=== PATIENT | male | born 1995 | race Caucasian/White ===

== ENCOUNTER 2019-01-16 12:50 | Emergency (ER) | payer OTHER ==
[2019-01-16] MEDS ORDERED: PEG 3350/NA SULF,BICARB,CL/KCL (GAVILYTE-G) 4000 ML BTL PO ONE (13:29)
[2019-01-16] MEDS ORDERED: GLYCERIN ADULT 1 EACH SUPP PR ONE (13:29)
--- NOTE | 2019-01-16 13:29 | EDPHY ---
H & P Stated Complaint: 2 weeks constipation Source: Patient Exam Limitations: No limitations - Personal History Current Tetanus Diphtheria and Acellular Pertussis (TDAP): Yes - Medical/Surgical History Hx Asthma: No Hx Chronic Respiratory Disease: No Hx Diabetes: No Hx Cardiac Disease: No Hx Renal Disease: No Hx Cirrhosis: No Hx Alcoholism: No Hx HIV/AIDS: No Hx Splenectomy or Spleen Trauma: No Other PMH: constipation - Social History Smoking Status: Never smoked Time Seen by Provider: 01/16/19 13:03 HPI/ROS: HPI: This is a 23-year-old male who presents with Chief Complaint: Constipation x2 weeks Location: GI Quality: No bowel movement Duration: Weeks Signs and Symptoms: no fever, no nausea, no vomiting, no hematemesis, no blood in stool, no abdominal bloating, no diarrhea, no back pain, no urinary symptoms , no testicular/groin pain, no indigestion, no chest pain, no shortness of breath Timing: Acute on chronic Severity: [id number] Context: Patient reports that he has a history of irritable bowel syndrome constipation type, presents with complaints of no bowel movement in 2 weeks. He denies any fever, abdominal pain, hemorrhoids, rectal bleeding, blood in stool, hematemesis, vomiting, nausea. He takes [id number] fiber Gummies twice daily and eats fiber bars. Patient reports that his last meal was yesterday evening. He has tried [id number] lactulose and magnesium citrate without relief of symptoms. Modifying Factors: See above Comment: ROS: A comprehensive 10 system review of systems is otherwise negative aside from elements mentioned in the history of present illness. MEDICAL/SURGICAL/SOCIAL HISTORY: Medical history: Generally healthy. Does not take any regular medications. Surgical history: Denies Social history: Never smoked. Family history noncontributory. CONSTITUTIONAL: Extremely well-appearing adult white male, awake and alert, no obvious distress HEENT: Atraumatic and normocephalic, PERRL, EOMI. Nares patent; no rhinorrhea; no nasal mucosal edema. Tympanic membranes clear. Oropharynx clear, no exudate and moist pink mucosa. Airway patent. No lymphadenopathy. No meningismus. Cardiovascular: Normal S1/S2, regular rate, regular rhythm, without murmur rub or gallop. PULMONARY/CHEST: Symmetrical and nontender. Clear to auscultation bilaterally. Good air movement. No accessory muscle usage. ABDOMEN: Soft, nondistended, nontender, no rebound, no guarding, no peritoneal signs, no masses or organomegaly. No CVAT. EXTREMITIES: 2/2 pulses, strength 5/5, no deformities, no clubbing, no cyanosis or edema. NEUROLOGICAL: no focal neuro deficits. GCS 15. SKIN: Warm and dry, no erythema. no rash. Good capillary refill. (Renu Webster) Constitutional: Initial Vital Signs Temperature (C) 36.5 C 01/16/19 12:52 Heart Rate 63 01/16/19 12:52 Respiratory Rate 18 01/16/19 12:52 Blood Pressure 112/82 H 01/16/19 12:52 O2 Sat (%) 97 01/16/19 12:52 O2 Delivery Mode Room Air Allergies/Adverse Reactions: No Known Allergies Allergy (Unverified 01/16/19 12:52) Home Medications: Medication Instructions Recorded LACTULOSE 01/16/19 Medical Decision Making - Diagnostics Imaging Results: Imaging Impressions Abdomen X-Ray 01/16/19 13:03 Impression: 1. No evidence of bowel obstruction. 2. Moderate amount of retained fecal material in the colon compatible with constipation. ED Course/Re-evaluation: Vital signs reviewed and stable upon arrival. Abdominal x-ray my read shows moderate stool burden but no signs of obstruction. Given glycerin suppository and GoLYTELY Discussed bowel regimen, gastroenterology follow-up Abdomen is soft and nontender. Tolerating p.o. Liquids. This patient was seen under the supervision of my secondary supervising physician. I evaluated care for this patient independently. (Renu Webster) I did not see this patient while he was in the emergency department. However his care was discussed with PA while the patient was in the department. I agree with treatment plan and management (Cory Gonzales) Differential Diagnosis: Abdominal pain including but not limited to appendicitis, cholecystitis, gastritis and urinary tract infection. (Renu Webster) - Data Points Medications Given: Discontinued Medications Glycerin (Glycerin Adult) 1 each AL ONCE ONE Stop: 01/16/19 13:30 Last Admin: 01/16/19 14:14 Dose: 1 each Polyethylene Glycol/Electrolytes (Gavilyte - G) 4,000 ml PO ONCE ONE Stop: 01/16/19 13:30 Last Admin: 01/16/19 14:14 Dose: 4,000 ml Departure - Departure Disposition: Home, Routine, Self-Care Clinical Impression: Constipation by delayed colonic transit Condition: Good Instructions: Polyethylene Glycol 3350/Electrolytes (By mouth), Glycerin (Into the rectum), Constipation (ED) Additional Instructions: Consume a minimum of 8-10 glasses of water or electrolyte fluid replacement drinks that include Gatorade, Powerade, Pedialyte. Eat a clear liquid diet for the next 48 hours and then slowly advance as tolerated. Take GoLYTELY over the next 2-[address] suppository into rectum when you arrive home. Start taking MiraLax daily and continue to take fiber commands. Follow-up with Gastroenterology in the next 1-2 weeks to discuss chronic constipation. Return to the Emergency Room if symptoms do not resolve in the 72 hours, you spike a fever > 102 F, or experience intractable abdominal pain/nausea/ vomiting. Referrals: THOMAS ZAPIEN [Primary Care Provider] - As per Instructions Say Jameson MD [Medical Doctor] - As per Instructions
[2019-01-16 14:13] VITALS: BP 108/70
== END 2019-01-16 14:38 | disposition home or self-care (01) ==
DX: K59.01 Slow transit constipation (principal)